=== PATIENT | male | born 1990 ===

== ENCOUNTER 2017-06-24 20:12 | Emergency (ER) | payer OTHER ==
[2017-06-24 20:22] VITALS: BP 105/56; PULSE 65; RESP 18; TEMP 97.7; O2SAT 98
[2017-06-24] MEDS ORDERED: Tdap Vaccine 0.5 ml Vial (10-64 yrs) IM ONE ×2 (20:51→21:17)
--- NOTE | 2017-06-24 21:21 | ED PDOC ---
HPI: General Adult Time Seen by Provider: 06/24/17 20:25 Chief Complaint (Nursing): Medical Clearance History Per: Patient Additional Complaint(s): Pt. states at 1330 today he was helping a man having a seizure. Pt. states the man injured his face and was bleeding. Reports that the man's glasses broke and it punctured him in the R knee. Denies pain, fever. Pt. reports a negative HIV status but does not remember last testing. Past Medical History Reviewed: Historical Data, Nursing Documentation, Vital Signs Vital Signs: Last Vital Signs Temp 97.7 F 06/24/17 20:15 Pulse 65 06/24/17 20:15 Resp 18 06/24/17 20:15 BP 105/56 L 06/24/17 20:15 Pulse Ox 98 06/24/17 22:14 - Medical History PMH: Denies: Hepatitis, HIV - Surgical History Surgical History: No Surg Hx - Family History Family History: States: No Known Family Hx - Allergies Allergies/Adverse Reactions: Allergies Allergy/AdvReac Type Severity Reaction Status Date / Time No Known Allergies Allergy Verified 10/25/14 23:24 Review of Systems ROS Statement: Except As Marked, All Systems Reviewed And Found Negative Physical Exam - Physical Exam Appears: Positive for: Well, Non-toxic, No Acute Distress Skin: Positive for: Normal Color, Warm. Negative for: Rash Eye Exam: Positive for: Normal appearance Pulses-Dorsalis Pedis (R): 2+ Extremity: Positive for: Normal ROM (FROM actively of R knee), Other ( superficial puncture wound of anterior R knee) Neurologic/Psych: Positive for: Alert, Oriented. Negative for: Aphasia, Facial Droop - Laboratory Results Result Diagrams: 06/24/17 21:47 06/24/17 21:47 - ECG O2 Sat by Pulse Oximetry: 98 - Progress ED Course And Treament: Pt. offered PEP for HIV but refused. Advised to f/u with PMD in 4 weeks for repeat testing. Labs, tetanus prophylaxis ordered. Wound irrigated and cleansed. Disposition - Clinical Impression Clinical Impression: Exposure to blood, Puncture wound - Patient ED Disposition Is Patient to be Admitted: No - Disposition [facility]errals: [facility]Outside] [facility] [[facility]] Disposition: Routine/Home Disposition Time: 22:13 Condition: STABLE Additional Instructions: FOLLOW UP WITH YOUR PRIMARY CARE DOCTOR IN 4 WEEKS FOR REPEAT TESTING Instructions: Blood or Body Fluid Exposure Forms: [employer] [facility] (Yakut) Print Language: THAI
[2017-06-24 21:51] LABS: BASO % 0.6 % (0.0-2.0); EOS # 0.2 K/uL (0.0-0.7); EOS % 2.6 % (0.0-4.0); HEMOGLOBIN 12.9 g/dL (12.0-18.0); LYMPH # 2.4 K/uL (1.0-4.3); LYMPH % 40.3 % (20.0-40.0); MEAN CELL VOLUME 85.9 fl (80.0-94.0); MEAN CORPUSCULAR HEMOGLOBIN 28.7 pg (27.0-31.0); MEAN CORPUSCULAR HGB CONC 33.4 g/dL (33.0-37.0); MEAN PLATELET VOLUME 8.5 fl (7.2-11.7); MONO # 0.6 K/uL (0.0-0.8); MONO % 9.5 % (0.0-10.0); NEUT # 2.8 K/uL (1.8-7.0); RBC 4.5 Mil/uL (4.40-5.90); RED CELL DISTRIBUTION WIDTH 13.5 % (11.5-14.5); WHITE BLOOD COUNT 6.1 K/uL (4.8-10.8)
[2017-06-24 22:11] LABS: ALB/GLOB RATIO 1.5 (1.0-2.1); ALBUMIN 4.3 g/dL (3.5-5.0); ALT/SGPT 45 U/L (21-72); AST/SGOT 42 U/L (17-59); BLOOD UREA NITROGEN 30 mg/dl (9-20); CALCIUM 9.7 mg/dL (8.4-10.2); GFR AFRICAN-AMERICAN > 60; GFR NON-AFRICAN AMERICAN > 60
[2017-06-26 12:31] LABS: HEPATITIS B SURFACE AG Negative (NEGATIVE)
[2017-06-26 12:36] LABS: HEPATITIS B CORE AB NEGATIVE (NEGATIVE)
== END 2017-06-24 22:24 | disposition home or self-care (01) ==
LOC: H.ER 20:12
DX: Z77.21 Contact with and (suspected) exposure to potentially hazardous body fluids (principal)